=== PATIENT | female | born 1995 | race American Indian/Alaskan Native ===

== ENCOUNTER 2016-09-06 10:44 | Emergency (ER) | payer SELFPAY ==
--- NOTE | 2016-09-06 11:59 | Emergency Department Report ---
Chief Complaint: Pain General Stated Complaint: PAIN/LUPUS Time Seen by Provider: 09/06/16 10:45 - HPI History of Present Illness: body pain off prednisone bc can no afford pmh lupus and asthma denies c/e/d morphine makes her arm swell currently on menses psh none vss. nad - Exam Vital Signs: Vital Signs 09/06/16 11:37 Temperature 98.3 F Pulse Rate 89 Respiratory 20 Rate Blood Pressure 134/98 O2 Sat by Pulse 100 Oximetry MSE screening note: Focused history and physical exam performed. Due to findings the following was ordered: ED Disposition for MSE Condition: Stable
[2016-09-06 12:47] LABS: Basophils % (Auto) 0.4 % (0.0-1.8); Eosinophils % (Auto) 8.7 % (0.0-4.3); Hemoglobin 12.6 gm/dl (10.1-14.3); Mean Corpuscular HGB Conc 33 % (30-34); Mean Corpuscular Hemoglobin 30 pg (28-32); Mean Corpuscular Volume 91 fl (79-97); Red Blood Count 4.17 M/mm3 (3.65-5.03); Red Cell Distribution Width 12.7 % (13.2-15.2); White Blood Count 4.3 K/mm3 (4.5-11.0)
[2016-09-06 13:01] LABS: Alanine Aminotransferase 16 units/L (7-56); Albumin 3.5 g/dL (3.9-5); Albumin/Globulin Ratio 0.7 %; Alkaline Phosphatase 63 units/L (35-129); Anion Gap 18 mmol/L; BUN/Creatinine Ratio 13.33; Blood Urea Nitrogen 8 mg/dL (7-17); Calcium 8.5 mg/dL (8.4-10.2); Carbon Dioxide 23 mmol/L (22-30); Chloride 106.1 mmol/L (98-107); Glucose 80 mg/dL (65-100); Sodium 143 mmol/L (137-145); Total Protein 8.2 g/dL (6.3-8.2)
[2016-09-06 13:19] LABS: Erythrocyte Sedimentation Rate 56 mm/Hr (0-20)
[2016-09-06 13:42] LABS: Platelet Count 156 K/mm3 (140-440)
[2016-09-06] MEDS ORDERED: SUBLIMAZE IV ONE (21:29)
[2016-09-06] MEDS ORDERED: ZOFRAN IV ONE (21:29)
[2016-09-06] MEDS ORDERED: TORADOL IV ONE (21:29)
--- NOTE | 2016-09-06 21:39 | Emergency Department Report ---
HPI - General Chief Complaint: Pain General Time Seen by Provider: 09/06/16 21:22 - HPI HPI: Room 9 The patient is a 21-year-old female presenting with a chief complaint of arthralgia. Patient states she has a history of lupus and only takes prednisone daily (10 mg). The patient states she ran out of her prednisone 1 week ago and the following evening began having pain and swelling in all of her joints. Patient states the pain has continued to increase and she currently gives her pain a score of 10/10. Location: All joints Duration: 6 Days Quality: Pain Severity:10/10 Modifying factors: [see above] Context: [see above] Mode of transportation: [not driving] ED Past Medical Hx - Past Medical History Previous Medical History?: Yes Additional medical history: lupus - Surgical History Past Surgical History?: No - Family History Family history: no significant - Social History Smoking Status: Never Smoker Substance Use Type: None (denies illicit drug use), Alcohol (occasional) - Medications Home Medications: Home Medications Medication Instructions Recorded Confirmed Last Taken Type HYDROcodone/APAP 5-325 [Pledger 1 - 2 each PO Q6HR PRN #14 tablet 09/06/16 Unknown Rx 5/325] predniSONE [Deltasone] 10 mg PO QDAY #30 tab 09/06/16 Unknown Rx ED Review of Systems ROS: Stated complaint: PAIN/LUPUS Other details as noted in HPI Comment: All other systems reviewed and negative Constitutional: denies: chills, fever Eyes: denies: eye pain, eye discharge, vision change ENT: denies: ear pain, throat pain Respiratory: denies: cough, shortness of breath, wheezing Cardiovascular: denies: chest pain, palpitations Endocrine: no symptoms reported Gastrointestinal: denies: abdominal pain, nausea, diarrhea Genitourinary: denies: urgency, dysuria, discharge Musculoskeletal: arthralgia, myalgia Skin: denies: rash, lesions Neurological: denies: headache, weakness, paresthesias Psychiatric: denies: anxiety, depression Hematological/Lymphatic: denies: easy bleeding, easy bruising Physical Exam - Physical Exam Vital Signs: Vital Signs 09/06/16 11:37 Temperature 98.3 F Pulse Rate 89 Respiratory 20 Rate Blood Pressure 134/98 O2 Sat by Pulse 100 Oximetry Physical Exam: GENERAL: The patient is well-developed well-nourished female standing in room appearing to be in moderate discomfort. [] HEENT: Normocephalic. Atraumatic. Extraocular motions are intact. Patient has moist mucous membranes. NECK: Supple. Trachea midline CHEST/LUNGS: Clear to auscultation. There is no respiratory distress noted. HEART/CARDIOVASCULAR: Regular. There is no tachycardia. There is no gallop rub or murmur. ABDOMEN: Abdomen is soft, nontender. Patient has normal bowel sounds. There is no abdominal distention. SKIN: There is no rash. There is no edema. There is no diaphoresis. NEURO: The patient is awake, alert, and oriented. The patient is cooperative. The patient has normal speech and gait. MUSCULOSKELETAL: There is no increased warmth of the joints of both knees or elbows.. There is no evidence of acute injury. ED Course Vital Signs 09/06/16 11:37 Temperature 98.3 F Pulse Rate 89 Respiratory 20 Rate Blood Pressure 134/98 O2 Sat by Pulse 100 Oximetry ED Medical Decision Making - Lab Data Result diagrams: 09/06/16 12:17 09/06/16 12:17 Laboratory Tests 09/06/16 09/06/16 09/06/16 12:17 12:17 12:17 WBC 4.3 L RBC 4.17 Hgb 12.6 Hct 38.0 MCV 91 MCH 30 MCHC 33 RDW 12.7 L Plt Count 156 Lymph % (Auto) 20.1 [place] % (Auto) 3.7 Eos % (Auto) 8.7 H Baso % (Auto) 0.4 Lymph # 0.9 L [place] # 0.2 Eos # 0.4 Baso # 0.0 Seg Neutrophils % 67.1 Seg Neutrophils # 2.9 ESR 56 Sodium 143 Potassium 4.0 Chloride 106.1 Carbon Dioxide 23 Anion Gap 18 BUN 8 Creatinine 0.6 L Estimated GFR > 60 BUN/Creatinine Ratio 13.33 Glucose 80 Calcium 8.5 Total Bilirubin 0.40 AST 24 ALT 16 Alkaline Phosphatase 63 C-Reactive Protein 2.20 H Total Protein 8.2 Albumin 3.5 L Albumin/Globulin Ratio 0.7 HCG, Qual Negative - Differential Diagnosis polyarthralgia, lupus Critical care attestation.: If time is entered above; I have spent that time in minutes in the direct care of this critically ill patient, excluding procedure time. ED Disposition Clinical Impression: Lupus, Polyarthralgia Disposition: DC- TO HOME OR SELFCARE Is pt being admited?: No Does the pt Need Aspirin: No Condition: Stable Instructions: Arthralgia (ED) Additional Instructions: Return to the emergency department immediately should you develop worsening symptoms, fever, inability to tolerate food or liquid or any other concerns. Prescriptions: HYDROcodone/APAP 5-325 [Pledger 5/325] 1 - 2 each PO Q6HR PRN #14 tablet PRN Reason: Pain predniSONE [Deltasone] 10 mg PO QDAY #30 tab Referrals: [facility] [Outside] - 3-5 Days ROXANA HENRY MD [Staff Physician] - 3-5 Days (Dr. Henry is a primary physician. Please follow up with her to be established as a patient) Time of Disposition: 21:44
[2016-09-06 22:30] VITALS: BP 120/71
== END 2016-09-06 22:31 | disposition home or self-care (01) ==
LOC: ED 10:44
DX: M32.9 Systemic lupus erythematosus, unspecified (principal)
CPT/HCPCS: 36415; 80053; 84703; 85025; 85652; 86140; 96374; 96375; 99284; J1885; J2405; J2930; J3010